=== PATIENT | female | born 1980 ===

== ENCOUNTER 2016-12-23 23:10 | Emergency (ER) | payer OTHER ==
[2016-12-23 23:19] VITALS: O2SAT 99
[2016-12-24] MEDS ORDERED: Naproxen 550 mg Tab PO STA (00:17)
[2016-12-24] MEDS ORDERED: Naproxen 550 mg Tab PO ONE (00:22)
--- NOTE | 2016-12-24 01:31 | C.PDOC ---
History Of Present Illness 36 year old female presents to the ED with complaints of right sided neck pain that radiates to her right upper chest beginning two hours prior to arrival. Patient states pain is exacerbated by movement of neck and right arm. She notes similar symptoms in the past and states her PMD prescribed Mobic. Patient has taken Mobic with no improvement of current symptoms. She denies falls/injuries , shortness of breath, chest pain, cough, fever, or palpitations. Time Seen by Provider: 12/24/16 00:11 Chief Complaint (Nursing): Upper Extremity Problem/Injury History Per: Patient History/Exam Limitations: no limitations Onset/Duration Of Symptoms: Hrs (2 hours ) Current Symptoms Are (Timing): Still Present Quality: "Pain" Severity: Moderate Exacerbating Factor(s): Movement Past Medical History Reviewed: Historical Data, Nursing Documentation, Vital Signs Vital Signs: Last Vital Signs Temp 98.8 F 12/24/16 02:37 Pulse 66 12/24/16 02:37 Resp 18 12/24/16 02:37 BP 109/74 12/24/16 02:37 Pulse Ox 99 12/24/16 06:35 - Medical History PMH: HTN, Rheumatoid Arthritis Family History: States: No Known Family Hx - Social History Hx Alcohol Use: No Hx Substance Use: No - Immunization History Hx Tetanus Toxoid Vaccination: No Hx Influenza Vaccination: No Hx Pneumococcal Vaccination: No Review Of Systems Except As Marked, All Systems Reviewed And Found Negative. Constitutional: Negative for: Fever, Chills Cardiovascular: Negative for: Chest Pain, Palpitations Respiratory: Negative for: Cough, Shortness of Breath Gastrointestinal: Negative for: Nausea, Vomiting Musculoskeletal: Positive for: Neck Pain (radiating to right upper chest) Skin: Negative for: Rash Neurological: Negative for: Weakness, Numbness Physical Exam - Physical Exam Appears: Well, Non-toxic, Other (anxious appearing, in mild pain ) Skin: Normal Color, Warm, Dry, No Rash Head: Atraumatic, Normacephalic Eye(s): bilateral: Normal Inspection Oral Mucosa: Moist Neck: No Midline Cervical Tenderness, Paracervical Tenderness (lateral right sided paracervical tenderness to palpation ), No Step Off Deformity, Supple Chest: Symmetrical, No Deformity Cardiovascular: Rhythm Regular, Other ( bradycardic ) Respiratory: Normal Breath Sounds, No Rales, No Rhonchi, No Wheezing Gastrointestinal/Abdominal: Normal Exam, Bowel Sounds, Soft, No Tenderness Extremity: Other (No crepitus ) Neurological/Psych: Oriented x3, Normal Motor, Normal Sensation ED Course And Treatment ECG: Interpreted By Me, Viewed By Me (sinus bradycardia 57 bpm, normal axis, no acute ST/T wave changes) ECG Interpretation: Normal Interpretation Of ECG: No acute changes. No ST-T wave changes. O2 Sat by Pulse Oximetry: 99 (room air ) Pulse Ox Interpretation: Normal - Radiology CXR: Interpreted by Me, Viewed By Me CXR Interpretation: Yes: No Acute Disease. No: Infiltrates Progress Note: EKG and CXR ordered and reviewed. Patient given PO Naprosyn and Valium. Reevaluation Time: 02:00 Reassessment Condition: Improved (On reassessment, patient is resting comfortably and states her pain has improved. CXR and EKG WNL. Vitals WNL and patient is well appearing and comfortable being discharged home. Rxs for Valium and Naprosyn given, and patient instructed to follow up with PMD in 1-2 days. She understands she should return to ED if symptoms worsen.) Disposition Counseled Patient/Family Regarding: Studies Performed, Diagnosis, Need For Followup, Rx Given - Disposition Referrals: Kaylee Gordon MD [Staff Provider] - Disposition: HOME/ ROUTINE Disposition Time: 02:00 Condition: STABLE Additional Instructions: SEGUIMIENTO CON OJEDA DOCTOR / CLNICA EN 1-2 ROLDAN USE LOS MEDICAMENTOS QUE LORE NECESARIOS DEVUELVA A LA VICENTA DE EMERGENCIA SI LOS SNTOMAS EMPEORARAN Prescriptions: diaZEpam [Valium] 5 mg PO BID PRN #12 tab PRN Reason: Muscle Spasm Naproxen [Naprosyn Tab] 375 mg PO BID PRN #20 tab PRN Reason: pain Instructions: Muscle Spasm (ED) Forms: [facility] (Togolese) Print Language: KYRGYZ - POA Present On Arrival: None - Clinical Impression Clinical Impression: Muscle spasms of neck - Scribe Statement The provider has reviewed the documentation as recorded by the Scribe Alba Sheffield All medical record entries made by the Scribe were at my direction and personally dictated by me. I have reviewed the chart and agree that the record accurately reflects my personal performance of the history, physical exam, medical decision making, and the department course for this patient. I have also personally directed, reviewed, and agree with the discharge instructions and disposition.
[2016-12-24 02:39] VITALS: BP 109/74; PULSE 66; RESP 18; TEMP 98.8
--- NOTE | 2016-12-24 09:37 | RAD ---
HISTORY: RIGHT SIDED PAIN COMPARISON: No prior. TECHNIQUE: Chest PA and lateral FINDINGS: LUNGS: Mild bibasilar atelectasis. PLEURA: No significant pleural effusion identified. No pneumothorax apparent. CARDIOVASCULAR: Heart size is upper limits of borderline/ mildly enlarged. . OSSEOUS STRUCTURES: No significant abnormalities. VISUALIZED UPPER ABDOMEN: Normal. OTHER FINDINGS: None. IMPRESSION: Mild bibasilar atelectasis. Borderline/mild cardiomegaly
--- NOTE | 2016-12-24 12:26 | CARD ---
APPROVED REPORT EKG Measurement Heart [id number] <Conclusion> Sinus bradycardia Otherwise normal ECG
== END 2016-12-24 02:59 | disposition home or self-care (01) ==
LOC: C.ER 23:10
DX: M62.838 Other muscle spasm (principal)